=== PATIENT | male | born 1965 | race Two or more races ===

== ENCOUNTER → 2025-02-05 | Outpatient (CLI) | payer OTHER, SELFPAY ==
--- NOTE | 2025-02-05 16:00 | XR_ITS ---
Examination: Breast ultrasound, unilateral, left Date and time of exam: February 05, 2025 1603 hours INDICATIONS: Palpable lump in the retroareolar region one year Technique: Real-time orozco scale ultrasonographic imaging performed left breast including all 4 quadrants as well as nipple retroareolar and axillary region. Findings: Circumscribed nodule retroareolar 9 x 2 x 7 mm IMPRESSION: BI-RADS Category 3: Probably benign findings. One additional 6 month left breast sonogram follow-up is needed
== END | disposition home or self-care (01) ==
DX: N63.42 Unspecified lump in left breast, subareolar (principal)
CPT/HCPCS: 76641